=== PATIENT | male | born 1940 | race Caucasian/White ===

== ENCOUNTER → 2016-11-11 | Outpatient (CLI) | payer BC ==
[~2016-11-11] MED LIST: FESO4TAB PO; FLM4 PO; METR0.754 TOP; OPTIRAY 320 IV PRN; OXYC-57 PO
--- NOTE | 2016-11-12 08:02 | DIAGNOSTIC IMAGING REPORT ---
CT OF THE ABDOMEN AND PELVIS WITH AND WITHOUT CONTRAST HEMATURIA PROTOCOL CLINICAL HISTORY: Microscopic hematuria. COMPARISON STUDY: CT of the abdomen and pelvis September 12, 2014. TECHNIQUE: Unenhanced and split bolus phase imaging of the abdomen and pelvis was performed. Injection of 94 cc of Optiray 320 IV was uneventful. Delayed phase imaging through the bladder was also performed. CT DOSE: 810.16 mGy.cm FINDINGS: There is a 2 mm right renal calculus. No ureteral calculi are present. There is no hydronephrosis or hydroureter. No solid renal lesions are present. No bladder lesion is identified. The prostate is mildly enlarged. Best shown on coronal reformats, there is apparent wall irregularity of the left ureter, most evident at the level the mid ureter. This is possibly due to adjacent vessels. In addition, there is equivocal urothelial thickening within the left renal collecting system/renal pelvis. No intraluminal abnormalities identified. There is no upstream dilatation. The liver, spleen, adrenal glands and pancreas are normal. Mild mesenteric infiltration is unchanged. There is no abdominal or pelvic lymphadenopathy. There is an old L1 compression fracture. There are no suspicious osseous lesions. IMPRESSION: 1. 2 mm right renal calculus. No ureteral calculi or hydronephrosis. 2. Apparent wall irregularity of the left ureter and equivocal urothelial thickening within the left renal pelvis and collecting system. The findings are inconclusive but asymmetric when compared to the right side. Given the clinical history, urothelial lesions would be difficult to exclude. The findings could be correlated with urine cytology and ureteroscopy as indicated. Electronically signed by: Brian Rosas M.D. 11/12/2016 8:00 AM Dictated Date/Time: 11/11/2016 11:20 AM
== END | disposition home or self-care (01) ==
LOC: C.CTS 10:33
PROVIDERS: ATTEND Urology
DX: R31.29 Other microscopic hematuria (principal); N20.0 Calculus of kidney

== ENCOUNTER → 2016-11-20 | Outpatient (CLI) | payer BC ==
[~2016-11-20] MED LIST changes: -OPTIRAY 320 IV PRN
== END | disposition home or self-care (01) ==
LOC: C.LABSPEC 17:22
PROVIDERS: ATTEND Urology
DX: R31.9 Hematuria, unspecified (principal); R82.8 Abnormal findings on cytological and histological examination of urine

== ENCOUNTER 2016-12-16 08:41 | Day surgery (SDC) | payer BC ==
[2016-12-03 09:22] VITALS: BMI 24.0
--- NOTE | 2016-12-03 09:43 | PAT Medication Instructions ---
Service Date Dec 03, 2016. Current Home Medication List Fesoterodine Fumarate (Toviaz), 1 TAB PO HS Metronidazole (Topical) (Metrocream), 1 APPLN TOP BID Tamsulosin HCl (Tamsulosin HCl), 1 CAP PO HS Medication Instructions For Your Scheduled Surgery - Hold the following medications 24 hours prior to surgery: Metronidazole (Topical) (Metrocream), 1 APPLN TOP BID - Take the following medications as scheduled the evening before surgery: Fesoterodine Fumarate (Toviaz), 1 TAB PO HS Tamsulosin HCl (Tamsulosin HCl), 1 CAP PO HS Nothing to eat or drink after midnight If you have any questions please call us at [phone] or [phone] or [phone]
[2016-12-03 10:17] LABS: BASO % 0.6 %; BASO ABS # 0.03 K/uL (0-0.2); COMPLETE YES; EOS % 2.3 %; HEMATOCRIT 43.2 % (42-52); IG% 0.2 %; LYMPH % 21.7 %; LYMPH ABS # 1.02 K/uL (1.2-3.4); MEAN CELL VOLUME 97.5 fL (80-100); MEAN CORPUSCULAR HGB CONC 33.8 g/dl (32-36); MEAN PLATELET VOLUME 11.7 fL (7.4-10.4); MONO % 8.5 %; NEUT % 66.7 %; PLATELET COUNT 150 K/uL (130-400); RED BLOOD COUNT 4.43 M/uL (4.7-6.1); WHITE BLOOD COUNT 4.71 K/uL (4.8-10.8)
--- NOTE | 2016-12-03 10:19 | DIAGNOSTIC IMAGING REPORT ---
TWO VIEW CHEST CLINICAL HISTORY: Preoperative examination. FINDINGS: PA and lateral chest radiographs are correlated with chest CT dated 06/20/2015. The heart is mildly enlarged and there is atherosclerotic calcification of the thoracic aorta. The pulmonary vasculature is noncongested. Nonspecific interstitial thickening is identified. There is no airspace consolidation or pleural effusion. There is no pneumothorax. The skeletal structures are osteopenic. Mild scoliosis is noted in the thoracic spine. IMPRESSION: Mild cardiac enlargement with no active disease in the chest. Electronically signed by: Maurizio Hayes M.D. 12/03/2016 10:17 AM Dictated Date/Time: 12/03/2016 10:16 AM
[2016-12-03 10:30] LABS: MANUAL MICROSCOPIC REQUIRED? NO; REVIEW REQ? NO; URINE APPEARANCE CLEAR (CLEAR); URINE BILIRUBIN NEG (NEG); URINE COLOR YELLOW; URINE EPITHELIAL CELL AUTO 0-5 /lpf (0-5); URINE NITRITE NEG (NEG); URINE PH 5.5 (4.5-7.5); URINE SPECIFIC GRAVITY 1.017 (1.000-1.030); UROBILINOGEN NEG (NEG)
[2016-12-03 10:31] LABS: BUN/CREATININE RATIO 16.8 (10-20); CALCIUM 8.9 mg/dl (8.5-10.1); CREATININE 1.4 mg/dl (0.60-1.40)
[~2016-12-16] VITALS: Ht 172.7 cm; Wt 70.0 kg
[~2016-12-16 08:41] MED LIST changes: +CIPROFLOXACIN / D5W 400 MG IV SCH; +LACTATED RINGER'S 1000ML 1,000 ML IV SCH; -OXYC-57 PO
[2016-12-16 09:08] VITALS: BP 153/82; PULSE 81; TEMP 36.4; O2SAT 98; Ht 172.7 cm; Wt 70.0 kg
[2016-12-16] MEDS ORDERED: MIDAZOLAM HCL 1 MG/ML 2ML VIAL ONE (09:21)
[2016-12-16] MEDS ORDERED: FENTANYL CITRATE INJ 50 MCG/1 ML 2 ML VIAL ONE (09:21)
[2016-12-16] MEDS ORDERED: ONDANSETRON INJ 2 MG/ML 2 ML VIAL ONE (09:21)
[2016-12-16] MEDS ORDERED: PROPOFOL IV EMULSION 10 MG/ML 20 ML VIAL IV ONE (09:21)
[2016-12-16] MEDS ORDERED: LIDOCAINE HCL 2% 2 ML VIAL (20MG/ML) ONE (09:21)
--- NOTE | 2016-12-16 09:55 | History & Physical Bridge Note ---
H&P Re-Evaluation Bridge Note: I have examined the patient, reviewed the History & Physical and in the interval since the performance of the History & Physical I have noted the following changes of clinical significance: No changes noted
[2016-12-16] MEDS ORDERED: FENTANYL CITRATE INJ 50 MCG/1 ML 2 ML VIAL IV PRN (10:15)
[2016-12-16] MEDS ORDERED: EpHEDrine SULFATE INJ 50 MG/ML AMP IV PRN (10:15)
[2016-12-16] MEDS ORDERED: ATROPINE SULFATE 0.1 MG/ML 5ML SYR IV PRN (10:15)
[2016-12-16] MEDS ORDERED: EpHEDrine SULFATE 50MG/5ML SYR ONE (10:46)
[2016-12-16] MEDS ORDERED: [UNRECOGNIZED DRUG - OTHER] INSTIL ONE (11:21)
[2016-12-16] MEDS ORDERED: WATER INSTIL ONE (11:21)
--- NOTE | 2016-12-16 11:25 | [facility] Post Operative Brief Note ---
Immediate Operative Summary Operative Date Dec 16, 2016. Pre-Operative Diagnosis Abnormal Left Ureteral Mucosa and Hematuria Post-Operative Diagnosis Abnormal Left Ureteral Mucosa and Hematuria Procedure(s) Performed Cystoscopy, Left Ureteroscopy, Left Retrograde Pyelogram and Left Ureteral Stent Insertion Surgeon Dr. Jeanmarie Banks [place] Hand Surgeon(s) Dr. Fortunato Lisa Estimated Blood Loss 1ml Findings ureteral stricture Specimens Left Renal Barbatoge for Cytology collected at 1110 and sent to lab at 1115. Drains 6x26 left stent
[2016-12-16] MEDS ORDERED: OXYC-57 PO (11:26)
--- NOTE | 2016-12-16 11:27 | Discharge Instructions ---
Discharge Instructions Visit Reason for Visit: Hematuria Discharge Discharge Diagnosis / Problem: abnormal ureteral micosa Discharge Goals Goal(s): Therapeutic intervention Activity Recommendations Activity Limitations: resume your previous activity (take it easy today) Anesthesia . Post Anesthesia Instructions: If you have had General Anesthesia or IV Sedation: * Do not drive today. * Resume driving when surgeon permits. * Do not make important decisions or sign legal documents today. * Call surgeon for: 1. Temperature elevations greater than 101 degrees F. 2. Uncontrollable pain. 3. Excessive bleeding. 4. Persistent nausea and vomiting. 5. Medication intolerance (nausea, vomiting or rash). * For nausea and vomiting use only clear liquids such as: tea, soda, bouillon until nausea subsides, then gradually increase diet as tolerated. * If you have any concerns or questions, call your surgeon's office. If physician is unavailable and it is an emergency, call 911 or go to the nearest emergency room. . Diet Recommendations Recommended Home Diet: resume previous diet Procedures Procedures Performed: Cystoscopy, Left Ureteroscopy, Left Retrograde Pyelogram and Left Ureteral Stent Insertion Pending Studies Studies pending at discharge: no Medical Emergencies . Who to Call and When: Medical Emergencies: If at any time you feel your situation is an emergency, please call 911 immediately. . Non-Emergent Contact Non-Emergency issues call your: Urologist . . "Provider Documentation" section prepared by Jeanmarie Banks. [place] Drug Monitoring Program Search Results: patient reviewed within database
[2016-12-16] MEDS ORDERED: OXYCODONE/ACETAMINOPHEN 5-325 TAB PO PRN (11:30)
--- NOTE | 2016-12-16 12:03 | Anesthesiology Progress Note ---
Anesthesia Post Op Note Date & Time Dec 16, 2016 at 12:04 Vital Signs Vital Signs Past 12 Hours Date Time Temp Pulse Resp B/P Pulse Ox O2 Delivery O2 Flow Rate FiO2 12/16/16 11:55 77 15 122/72 96 Room Air 12/16/16 11:45 85 13 119/81 100 Mask 10 12/16/16 11:35 75 10 115/68 99 Mask 10 12/16/16 11:26 36.0 80 14 111/73 100 Mask 10 12/16/16 09:08 36.4 81 18 153/82 98 Room Air Notes Mental Status: alert / awake / arousable, participated in evaluation Pt Amnestic to Procedure: Yes Nausea / Vomiting: adequately controlled Pain: adequately controlled Airway Patency, RR, SpO2: stable & adequate BP & HR: stable & adequate Hydration State: stable & adequate Anesthetic Complications: no major complications apparent
--- NOTE | 2016-12-16 12:05 | DIAGNOSTIC IMAGING REPORT ---
Retrograde PolyGram RETROGRADE INCLUDES KUB CLINICAL HISTORY: LEFT STENT stent placement TECHNIQUE: Image intensifier COMPARISON STUDY: 11/12/2016 FINDINGS: Partial retrograde opacification left ureter and left renal collecting system. This is followed by wire placement and is followed by stent placement. Proximal aspect of the stent appears be in good position. Distal aspect of the stent is not seen in this examination. IMPRESSION: Left ureteral stent placement Electronically signed by: Jeremy Blankenship M.D. 12/16/2016 12:04 PM Dictated Date/Time: 12/16/2016 12:03 PM
[2016-12-16 12:20] VITALS: BP 127/74; PULSE 75; TEMP 36.2; O2SAT 97
--- NOTE | 2016-12-16 12:23 | OPERATIVE REPORT ---
DATE OF OPERATION: 12/16/2016 PREOPERATIVE DIAGNOSIS: Abnormal ureteral mucosa on CAT scan with hematuria. POSTOPERATIVE DIAGNOSIS: Same plus ureteral stricture x2. FINDINGS: Cystoscopic exam revealed normal anterior urethra. Prostatic fossa was mildly obstructing with kissing lateral lobes. Bladder showed 1+ trabeculation. Left retrograde showed a distal ureteral stricture and a proximal ureteral stricture. SURGEONS: Dr. Banks and Dr. Lisa. ANESTHESIA: General. DRAINS: 6 Anguillan x 26 cm left ureteral stent. COMPLICATIONS: Unable to get the ureteroscope past the proximal stricture. SPECIMENS: Barbotage urine from left renal pelvis. INDICATIONS: The patient is a 76-year-old white male who on evaluation for hematuria was found to have an abnormal appearing mucosa by CAT scan in the left renal pelvis and also some abnormal thickening of the ureter in several areas. Because of this and the hematuria, the patient was brought in for ureteroscopy. PROCEDURE IN DETAIL: After the induction of an adequate general anesthetic and appropriate time-out, the patient was placed in the dorsal lithotomy position, lower abdomen and genitalia were prepped with Hibiclens and draped in a sterile fashion. Using a 22-Anguillan cystoscope, routine cystoscopic exam was performed with the above noted findings with the 30 and 70 degree lenses. Next, using a 4.8 Anguillan cone tipped catheter, left retrograde pyelogram was performed with the above noted findings. After completing this, a 0.03 guidewire was passed up the left ureter under fluoroscopic guidance until positioned in the renal pelvis. The intramural tunnel was then dilated with a 10-Anguillan dilator. Initially tried flexible ureteroscopy but was unable to get the flexible ureteroscope to go by the distal stricture, so we switched to a rigid ureteroscope and were able to get the ureteroscope up the ureter to over the level of the vessels and up to the proximal stricture. There were no tumors seen this far up. The rigid ureteroscope was removed and another attempt was made to pass the flexible ureteroscope past the distal stricture, but we were unable to get the scope to go by. So at this point, the ureteroscope was removed. A 5-Anguillan open-ended catheter was passed over the wire, which was then removed. Barbotage specimen from the left renal pelvis was obtained. The guidewire was then rethreaded through the open-ended catheter which was removed and then this was rethreaded through the cystoscope and a 6 Anguillan x 26 cm stent was passed under fluoroscopic guidance over the wire up into the left renal pelvis, confirmed by fluoroscopy. The guidewire was removed. There was good curl at the bladder level. The patient's bladder was then drained, cystoscope and sheath were removed. All needle, sponge and instrument counts were correct at the end of the case. The patient tolerated the procedure well and went to the recovery room in stable condition. I attest to the content of the Intraoperative Record and any orders documented therein. Any exceptio ns are noted below.
[2016-12-16 12:45] VITALS: BP 123/72; PULSE 62; TEMP 36.4; O2SAT 99
[2016-12-16 13:15] VITALS: BP 126/72; PULSE 69; O2SAT 99
== END 2016-12-16 13:50 | disposition home or self-care (01) ==
LOC: C.ACU 08:41
PROVIDERS: ATTEND Urology
DX: N36.8 Other specified disorders of urethra (principal); R31.9 Hematuria, unspecified; N35.9 Urethral stricture, unspecified; Z68.24 Body mass index [BMI] 24.0-24.9, adult; Z98.41 Cataract extraction status, right eye; Z98.42 Cataract extraction status, left eye; Z82.49 Family history of ischemic heart disease and other diseases of the circulatory system; Z83.3 Family history of diabetes mellitus

== ENCOUNTER → 2017-02-24 | Outpatient (CLI) | payer BC ==
[~2017-02-24] MED LIST changes: -CIPROFLOXACIN / D5W 400 MG IV SCH; -LACTATED RINGER'S 1000ML 1,000 ML IV SCH; +OXYC-57 PO
[2017-02-24 13:57] LABS: ESTIMATED AVERAGE GLUCOSE 100 mg/dl; HA1C FLAG Normal (Normal)
[2017-02-24 14:48] LABS: BLOOD UREA NITROGEN 22 mg/dl (7-18); BUN/CREATININE RATIO 15.5 (10-20); CALCIUM 8.7 mg/dl (8.5-10.1); CARBON DIOXIDE 26 mmol/L (21-32); CHLORIDE 109 mmol/L (98-107); GLUCOSE 99 mg/dl (70-99); SODIUM 144 mmol/L (136-145)
[2017-02-24 14:51] LABS: CHOLESTEROL 175 mg/dl (0-200); CHOLESTEROL/HDL RATIO 3.7; HDL CHOLESTEROL 47 mg/dl; LDL CHOLESTEROL CALCULATED 120 mg/dl; TRIGLYCERIDES 42 mg/dl (0-150); VERY LOW DENSITY LIPOPROT CALC 8 mg/dl
== END | disposition home or self-care (01) ==
LOC: C.LABBC 09:29
PROVIDERS: ATTEND Internal Medicine
DX: Z00.00 Encounter for general adult medical examination without abnormal findings (principal); R73.01 Impaired fasting glucose

== ENCOUNTER → 2017-06-02 | Outpatient (CLI) | payer BC ==
[2017-06-02 13:43] LABS: BASO % 0.7 %; BASO ABS # 0.04 K/uL (0-0.2); COMPLETE YES; EOS % 1.7 %; HEMATOCRIT 34.7 % (42-52); IG% 0.2 %; LYMPH % 22.4 %; LYMPH ABS # 1.21 K/uL (1.2-3.4); MEAN CELL VOLUME 89.2 fL (80-100); MEAN CORPUSCULAR HEMOGLOBIN 28.5 pg (25-34); MEAN PLATELET VOLUME 11.3 fL (7.4-10.4); MONO % 11.9 %; NEUT % 63.1 %; PLATELET COUNT 231 K/uL (130-400); RED BLOOD COUNT 3.89 M/uL (4.7-6.1)
[2017-06-02 15:21] LABS: BLOOD UREA NITROGEN 22 mg/dl (7-18); BUN/CREATININE RATIO 15.4 (10-20); CALCIUM 8.9 mg/dl (8.5-10.1); CARBON DIOXIDE 29 mmol/L (21-32); CHLORIDE 104 mmol/L (98-107); GLUCOSE 105 mg/dl (70-99); SODIUM 138 mmol/L (136-145)
== END | disposition home or self-care (01) ==
LOC: C.LABBC 11:31
PROVIDERS: ATTEND Urology
DX: N40.1 Benign prostatic hyperplasia with lower urinary tract symptoms (principal); R31.29 Other microscopic hematuria; R31.0 Gross hematuria

== ENCOUNTER → 2017-07-06 | Outpatient (CLI) | payer BC ==
[~2017-07-06] MED LIST changes: -OXYC-57 PO
[2017-07-06 13:46] LABS: HEMATOCRIT 36.7 % (42-52); MEAN CORPUSCULAR HEMOGLOBIN 27.6 pg (25-34); MEAN CORPUSCULAR HGB CONC 31.3 g/dl (32-36); MEAN PLATELET VOLUME 11.6 fL (7.4-10.4); PLATELET COUNT 218 K/uL (130-400); RED BLOOD COUNT 4.17 M/uL (4.7-6.1); WHITE BLOOD COUNT 6.14 K/uL (4.8-10.8)
== END | disposition home or self-care (01) ==
LOC: C.LABBC 10:41
PROVIDERS: ATTEND Internal Medicine
DX: D64.9 Anemia, unspecified (principal)

== ENCOUNTER → 2017-09-03 | Outpatient (CLI) | payer BC ==
[2017-09-03 13:58] LABS: HEMATOCRIT 42.9 % (42-52); MEAN CELL VOLUME 94.5 fL (80-100); MEAN CORPUSCULAR HEMOGLOBIN 31.1 pg (25-34); MEAN CORPUSCULAR HGB CONC 32.9 g/dl (32-36); PLATELET COUNT 184 K/uL (130-400); RED BLOOD COUNT 4.54 M/uL (4.7-6.1); WHITE BLOOD COUNT 6.65 K/uL (4.8-10.8)
[2017-09-03 14:14] LABS: ALT/SGPT 15 U/L (12-78); AST/SGOT 12 U/L (15-37); BLOOD UREA NITROGEN 17 mg/dl (7-18); BUN/CREATININE RATIO 11.9 (10-20); CALCIUM 9.2 mg/dl (8.5-10.1); CARBON DIOXIDE 29 mmol/L (21-32); CHLORIDE 107 mmol/L (98-107); CHOLESTEROL 186 mg/dl (0-200); CREATININE 1.41 mg/dl (0.60-1.40); GLUCOSE 97 mg/dl (70-99); POTASSIUM 3.6 mmol/L (3.5-5.1); SODIUM 141 mmol/L (136-145); TRIGLYCERIDES 66 mg/dl (0-150); VERY LOW DENSITY LIPOPROT CALC 13 mg/dl
[2017-09-03 14:19] LABS: CHOLESTEROL/HDL RATIO 3.9; FERRITIN 23.9 ng/ml (8.0-388.0); HDL CHOLESTEROL 48 mg/dl; LDL CHOLESTEROL CALCULATED 125 mg/dl
[2017-09-04 05:39] LABS: ESTIMATED AVERAGE GLUCOSE 100 mg/dl; HA1C FLAG Normal (Normal)
== END | disposition home or self-care (01) ==
LOC: C.LABBC 09:44
PROVIDERS: ATTEND Internal Medicine
DX: R73.01 Impaired fasting glucose (principal); D64.9 Anemia, unspecified; E78.5 Hyperlipidemia, unspecified

== ENCOUNTER → 2017-10-29 | Outpatient (CLI) | payer BC ==
[~2017-10-29] MED LIST changes: +DOCU1TAB6 PO; +DTR2 PO; +FRRS300 PEG; +MAGN1SOL7 PO; +POLY335025 PO; +[UNRECOGNIZED DRUG - CODE] OPB
[2017-10-29 19:12] LABS: BLOOD UREA NITROGEN 26 mg/dl (7-18); CREATININE 1.48 mg/dl (0.60-1.40)
== END | disposition home or self-care (01) ==
LOC: C.LABBC 14:02
PROVIDERS: ATTEND Urology
DX: R31.0 Gross hematuria (principal)

== ENCOUNTER → 2017-10-30 | Outpatient (CLI) | payer BC ==
[~2017-10-30] MED LIST changes: -DOCU1TAB6 PO; -DTR2 PO; -FRRS300 PEG; -MAGN1SOL7 PO; +OPTIRAY 320 IV PRN; -POLY335025 PO; -[UNRECOGNIZED DRUG - CODE] OPB
--- NOTE | 2017-10-30 12:40 | DIAGNOSTIC IMAGING REPORT ---
ABD/PELVIS COMBO CT DOSE: 1323.36 mGycm HISTORY: Hematuria GROSS HEMATURIA TECHNIQUE: Multiaxial CT images of the abdomen and pelvis were performed pre and post intravenous contrast enhancement. A dose lowering technique was utilized adhering to the principles of ALARA. COMPARISON STUDY: 11/11/2016 FINDINGS: Lung bases are clear. Liver spleen and pancreas appear unremarkable. Right kidney enhances uniformly. There is unchanging 2 mm nonobstructing calcification of the mid right kidney. No new or interval findings of the right kidney compared to the prior study. Left kidney shows subtle in homogeneity of enhancement as compared to the right kidney. There is persistent infiltrative change of the left renal perinephric space unchanged from the prior study. Suggestion of slightly progressive soft tissue near the proximal left ureter and left renal pelvis compared to the prior exam. Subtle increase in extrinsic mass effect upon the left renal pelvis and proximal left ureter. 7 mm decrease in density mid left kidney medially anterior to the renal pelvis not present on the prior study. Persistent caliectasis of the upper pole perhaps slightly increased in prominence compared to the prior study. Persistent slight soft tissue fullness encompassing the proximal left ureter although significant narrowing of the ureteral lumen is not appreciated. Ureters otherwise are unremarkable in overall course and caliber. Previously noted soft tissue prominence about the left ureter at its mid aspect is similar. This again is suggestive of vascular/vessel artifact immediately adjacent to the ureter as opposed to a true uroepithelial lesion. The bladder is unremarkable in appearance. Opacification is unremarkable. Bowel pattern within the abdomen and pelvis is considered nonobstructive throughout. Several small para-aortic nodes less than 6 mm in dimension are stable. IMPRESSION: 1. 2 mm nonobstructing calculus centrally right kidney unchanged in the prior study. 2. Subtle in homogeneity of enhancement of the mid to lower aspect of left kidney compared to the prior study. 3. Slight increase in abnormal soft tissue within the left renal pelvis as well as surrounding the left ureter. 4. Slight increase in distention and caliectasis of the upper pole calyces of the left kidney as well as incomplete filling of the left renal pelvis as compared to the prior study again possibly secondary to progressive soft tissue prominence at the left renal hilum. 5. Based on this appearance I cannot exclude the possibility of a slowly progressive lesion of the left renal pelvis with secondary mass effect creating mild distention of the upper pole collecting system left kidney and possibly vascular compromise and/or infiltrative changes of the parenchyma of the mid to lower pole left kidney. 6. A neoplastic process must be considered. 7. Major of the study is similar compared to the prior exam with no significant interval change. The above report was generated using voice recognition software. It may contain grammatical, syntax or spelling errors. Electronically signed by: Jeremy Blankenship M.D. 10/30/2017 12:39 PM Dictated Date/Time: 10/30/2017 12:28 PM
== END | disposition home or self-care (01) ==
LOC: C.CTS 11:51
PROVIDERS: ATTEND Urology
DX: R31.0 Gross hematuria (principal)

== ENCOUNTER → 2017-12-12 | Outpatient (CLI) | payer BC ==
[~2017-12-12] MED LIST changes: +DOCU1TAB6 PO; +DTR2 PO; +FRRS300 PEG; +MAGN1SOL7 PO; -OPTIRAY 320 IV PRN; +POLY335025 PO; +[UNRECOGNIZED DRUG - CODE] OPB
== END | disposition home or self-care (01) ==
LOC: C.LAB1850 12:02
PROVIDERS: ATTEND Family Medicine
DX: R39.9 Unspecified symptoms and signs involving the genitourinary system (principal)

== ENCOUNTER 2017-12-13 08:40 | Emergency (ER) | payer BC ==
[~2017-12-13] VITALS: Ht 172.7 cm; Wt 69.0 kg
[~2017-12-13 08:40] MED LIST changes: -DOCU1TAB6 PO; -DTR2 PO; -FRRS300 PEG; -MAGN1SOL7 PO; -POLY335025 PO; -[UNRECOGNIZED DRUG - CODE] OPB
[2017-12-13 08:44] VITALS: TEMP 36.5; Ht 172.7 cm; Wt 69.0 kg
--- NOTE | 2017-12-13 09:33 | EMERGENCY ROOM VISIT NOTE ---
ED Visit Note First contact with patient: 08:53 I have seen and examined this patient with Jer Wheeler and generally agree with the treatment plan as discussed. Current/Historical Medications Scheduled Fesoterodine Fumarate (Toviaz), 1 TAB PO HS Metronidazole (Topical) (Metrocream), 1 APPLN TOP BID Tamsulosin HCl (Tamsulosin HCl), 1 CAP PO HS Allergies Coded Allergies: No Known Allergies (Unverified , 12/16/16) Vital Signs Date Time Temp Pulse Resp B/P (MAP) Pulse Ox O2 Delivery O2 Flow Rate FiO2 12/13/17 08:44 36.5 107 18 125/72 99 Room Air Departure Information Referrals Pro,Navdeep Cruz M.D. (PCP) Patient Instructions My [facility]
--- NOTE | 2017-12-13 09:39 | DIAGNOSTIC IMAGING REPORT ---
PA CHEST RADIOGRAPH AND UPRIGHT AND SUPINE AP RADIOGRAPHS OF THE ABDOMEN CLINICAL HISTORY: constipation COMPARISON STUDY: Chest CT June 20, [address] of the abdomen and pelvis October 30, 2017. FINDINGS: Lung volumes are normal. No pneumothorax or pleural effusion is noted. There is no evidence for pulmonary edema. Cardiomediastinal silhouette is normal. There is no free air. There are prominent loops gas-filled small bowel large bowel without convincing evidence for a bowel obstruction. Pelvic calcifications reflect phleboliths. There is no significant stool within the rectum. There is mild to moderate amount of stool within the colon. IMPRESSION: 1. No free air. 2. Prominent loops of gas-filled small large bowel without evidence for a bowel obstruction. 3. Mild to moderate amount stool within the colon. No significant stool within the rectum. Electronically signed by: Brian Rosas M.D. 12/13/2017 9:37 AM Dictated Date/Time: 12/13/2017 9:33 AM
[2017-12-13] MEDS ORDERED: MAGN1SOL7 PO (09:44)
[2017-12-13] MEDS ORDERED: [UNRECOGNIZED DRUG - CODE] OPB (09:44)
[2017-12-13] MEDS ORDERED: DTR2 PO (09:44)
[2017-12-13] MEDS ORDERED: DOCU1TAB6 PO (09:44)
[2017-12-13] MEDS ORDERED: FRRS300 PEG (09:44)
[2017-12-13] MEDS ORDERED: POLY335025 PO (09:44)
[2017-12-13 10:41] VITALS: BP 136/76; PULSE 89; O2SAT 99
--- NOTE | 2017-12-13 16:48 | EMERGENCY ROOM VISIT NOTE ---
History First contact with patient: 08:53 Chief Complaint: OTHER COMPLAINT Stated Complaint: CONSTIPATION BLOCKAGE? History of Present Illness The patient is a 77 year old white male who presents to the Emergency Room with complaints of possible constipation. He denies any abdominal pain. Patient had a left nephrectomy 2 weeks ago at [place]. He states he was on a liquid diet for 5 days after surgery. He has since increased his diet back to normal. He states he has had nothing but watery stools. He is moving his bowels daily but states he has not had any significant solid stool. He became concerned about a blockage. He was seen at urgent care yesterday and they instructed him to take magnesium citrate which he did. He states there was an increase in the liquid stool, but no solid stool. He has been taking MiraLAX twice a day as well as stool softeners. He denies any abdominal distention. No pain. No fevers or chills. He did have some urinary symptoms and was diagnosed with a UTI yesterday. He has not notified his fight manager. His accompanies him today. Review of Systems REVIEW OF SYSTEM: HEENT: No dizziness, visual problems, hearing loss, or tinnitus. There is no difficulty swallowing and no oral lesions are present. PULMONARY: No cough, shortness of breath, sputum production or hemoptysis. CARDIOVASCULAR: No chest pain, palpitations, shortness of breath or peripheral edema. GASTROINTESTINAL: No diarrhea, constipation, nausea, vomiting, or abdominal pain. GENITOURINARY: No urgency or nocturia. Positive dysuria and frequency. NEUROLOGIC: No weakness, muscle tenderness, epilepsy or history of neurological problems. MUSCULOSKELETAL: No history of joint tenderness/swelling. Positive history of arthritis and arthralgias. SKIN: No rashes or lesions. PSYCHIATRIC: No history of depression or mental illness. ENDOCRINE: No history of diabetes, thyroid disorders, or abnormal hair growth. Past Medical/Surgical History Previous surgeries: Left nephrectomy. Medical history: Significant for BPH Family History Noncontributory. Parents are . Social History Smoking Status: Never Smoker Smokeless Tobacco Use: No Drug Use: none Marital Status: Housing Status: lives with family Occupation Status: retired Current/Historical Medications Scheduled Docusate Sodium (Docusate Sodium), 1 TAB PO BID Ferrous Sulfate (Ferrous Sulfate), 1 TAB PEG DAILY Magnesium Citrate (Magnesium Citrate), 10 OZ PO Saturdays Metronidazole (Topical) (Metrocream), 1 APPLN TOP BID Polyethylene Glycol 3350 (Miralax), 17 GM PO DAILY Tamsulosin HCl (Tamsulosin HCl), 1 CAP PO HS Tetrahydrozoline Hcl (Ophth) (Eq Eye Drops), 1 DROP OPB DAILY Tolterodine Tartrate (Detrol), 1 TAB PO BID Physical Exam Vital Signs Date Time Temp Pulse Resp B/P (MAP) Pulse Ox O2 Delivery O2 Flow Rate FiO2 12/13/17 10:41 89 16 136/76 99 12/13/17 08:44 36.5 107 18 125/72 99 Room Air Physical Exam Gen.: Well-developed, well-nourished, elderly white male, in no acute distress. Sitting on a bed. Alert and oriented. Skin:Warm and dry with good turgor. No rashes or lesions. No ecchymosis or erythema. The patient is not diaphoretic. No abrasions. Multiple healing surgical incisions on his abdomen. Steri-Strips are in place. No signs of infection. HEENT: Normocephalic atraumatic. Eyes PERRLA, EOMI. No conjunctiva or scleral injection. Nares patent bilaterally without turbinate enlargement. No significant drainage. No epistaxis. Oropharynx without erythema or exudate. Uvula midline, oral mucosa moist. No lesions present. Heart: Heart RRR. No MGR. Peripheral pulses are 2+. Lungs: Lungs are clear to auscultation. No crackles rhonchi or wheezing. Good air movement. The patient is able to take a deep breath. Abdomen: Abdomen was inspected, auscultated, and palpated. Bowel sounds present x 4. Soft, nontender to palpation. No hepato-splenomegaly. No masses noted. No rebound. Musculoskeletal: Gross motor function of the upper and lower extremities is intact and unremarkable. Medical Decision & Procedures ER Provider Diagnostic Interpretation: Acute abdominal x-ray series obtained today was read by radiology. No evidence for obstruction. Prominent Air-filled loops of bowel. No free air. Mild to moderate amount of stool within the colon. Films were reviewed by me and Dr. Yen. ED Course Patient was educated regarding today's findings. Conservative care measures were discussed. I did request a urine sample. He was unable to provide one. Provide an outpatient sample for formal UA. Culture has are been ordered from yesterday's sample at the office. Acute abdominal x-ray was obtained today. He has no evidence for obstruction. Patient was instructed to use 48 hours of a liquid diet and then gradually advance back to a normal diet. He should stop all of the motility agents and softeners. Follow up with his PCP this week for reexamination. He should notify his fight manager of the UTI diagnosis. Continue on his antibiotic. Patient was seen in conjunction with Dr. Yen, who also evaluated the patient and concurred with today's diagnosis and treatment plan. Medical Decision Possibility of obstruction, diverticulitis, diverticulosis, lack of stool, parasite, and antibiotic induced diarrhea were considered. [place] Drug Monitoring Program Search Results: no issues identified Medication Reconcilliation Current Medication List: was personally reviewed by me Blood Pressure Screening Patient's blood pressure: Normal blood pressure Impression Primary Impression: UTI (urinary tract infection) Additional Impression: Constipation Departure Information Dispostion Home / Self-Care Condition GOOD Forms WORK / SCHOOL INSTRUCTIONS, HOME CARE DOCUMENTATION FORM, IMPORTANT VISIT INFORMATION Patient Instructions Constipation, My [facility] Additional Instructions Continue your Cipro Call your fight manager at [place] to make him aware of your UTI Continue a liquid diet 48 hours and then slowly advance to a normal diet Avoid stool softeners or motility agents for the next 48 hours and then add as needed Follow-up with your PCP or return to the ED for any acute changes or worsening of symptoms Problem Qualifiers Primary Impression: UTI (urinary tract infection) Urinary tract infection type: acute cystitis Hematuria presence: without hematuria Qualified Codes: N30.00 - Acute cystitis without hematuria Additional Impression: Constipation Constipation type: unspecified constipation type Qualified Codes: K59.00 - Constipation, unspecified
== END 2017-12-13 10:43 | disposition home or self-care (01) ==
LOC: C.EDB 08:43
DX: N30.00 Acute cystitis without hematuria (principal); K59.00 Constipation, unspecified; Z90.5 Acquired absence of kidney; N40.0 Benign prostatic hyperplasia without lower urinary tract symptoms

== ENCOUNTER → 2017-12-13 | Outpatient (CLI) | payer BC | END | disposition home or self-care (01) | LOC: C.LABSPEC 14:23 | PROVIDERS: ATTEND Physician Assistant | DX: R35.0 Frequency of micturition (principal); R30.0 Dysuria ==

== ENCOUNTER → 2017-12-16 | Outpatient (CLI) | payer BC ==
[~2017-12-16] MED LIST changes: +DOCU1TAB6 PO; +DTR2 PO; -FESO4TAB PO; +FRRS300 PEG; +MAGN1SOL7 PO; +POLY335025 PO; +[UNRECOGNIZED DRUG - CODE] OPB
[2017-12-16 15:37] LABS: BASO % 0.7 %; BASO ABS # 0.04 K/uL (0-0.2); EOS % 2.1 %; EOS ABS # 0.12 K/uL (0-0.5); HEMATOCRIT 39.4 % (42-52); HEMOGLOBIN 13.3 g/dL (14.0-18.0); IG# 0.01 K/uL (0.00-0.02); LYMPH % 21.9 %; LYMPH ABS # 1.28 K/uL (1.2-3.4); MEAN CELL VOLUME 97.8 fL (80-100); MEAN CORPUSCULAR HGB CONC 33.8 g/dl (32-36); MEAN PLATELET VOLUME 10.6 fL (7.4-10.4); MONO % 12.5 %; MONO ABS # 0.73 K/uL (0.11-0.59); NEUT % 62.6 %; NEUT ABS # 3.67 K/uL (1.4-6.5); PLATELET COUNT 278 K/uL (130-400); RED CELL DISTRIBUTION WIDTH CV 13.5 % (11.5-14.5); RED CELL DISTRIBUTION WIDTH SD 48.6 fL (36.4-46.3); WHITE BLOOD COUNT 5.85 K/uL (4.8-10.8)
[2017-12-16 15:50] LABS: BLOOD UREA NITROGEN 31 mg/dl (7-18); CALCIUM 8.8 mg/dl (8.5-10.1); CARBON DIOXIDE 27 mmol/L (21-32); CREATININE 2.15 mg/dl (0.60-1.40); GLUCOSE 111 mg/dl (70-99); POTASSIUM 4.4 mmol/L (3.5-5.1); SODIUM 137 mmol/L (136-145)
== END | disposition home or self-care (01) ==
LOC: C.LAB1850 14:30
PROVIDERS: ATTEND Nurse Practitioner Adult Health
DX: N39.0 Urinary tract infection, site not specified (principal); K59.00 Constipation, unspecified; R31.9 Hematuria, unspecified

== ENCOUNTER → 2017-12-24 | Outpatient (CLI) | payer BC ==
[2017-12-24 13:45] LABS: BLOOD UREA NITROGEN 25 mg/dl (7-18); CALCIUM 9.2 mg/dl (8.5-10.1); CARBON DIOXIDE 25 mmol/L (21-32); GLUCOSE 136 mg/dl (70-99); POTASSIUM 4.1 mmol/L (3.5-5.1); SODIUM 136 mmol/L (136-145)
== END | disposition home or self-care (01) ==
LOC: C.LABBC 10:20
PROVIDERS: ATTEND Internal Medicine
DX: N17.9 Acute kidney failure, unspecified (principal)

== ENCOUNTER → 2017-12-25 | Outpatient (CLI) | payer BC ==
--- NOTE | 2017-12-25 13:24 | DIAGNOSTIC IMAGING REPORT ---
ABDOMEN FOR HERNIA CLINICAL HISTORY: Z90.5 S/p [id number] Severe left groin painTomorrow if po TECHNIQUE: Ultrasound COMPARISON STUDY: None FINDINGS: Reducible fat-containing left inguinal hernia. No evidence for bowel containment or incarceration. IMPRESSION: Reducible fat-containing left inguinal hernia. The above report was generated using voice recognition software. It may contain grammatical, syntax or spelling errors. Electronically signed by: Jeremy Blankenship M.D. 12/25/2017 1:23 PM Dictated Date/Time: 12/25/2017 1:22 PM
== END | disposition home or self-care (01) ==
LOC: C.ULTRBC 12:40
PROVIDERS: ATTEND Nurse Practitioner Adult Health
DX: R10.30 Lower abdominal pain, unspecified (principal); Z90.5 Acquired absence of kidney

== ENCOUNTER → 2017-12-31 | Outpatient (CLI) | payer BC ==
[2017-12-31 13:36] LABS: BLOOD UREA NITROGEN 32 mg/dl (7-18); CALCIUM 9.1 mg/dl (8.5-10.1); CARBON DIOXIDE 29 mmol/L (21-32); CREATININE 2.03 mg/dl (0.60-1.40); GLUCOSE 66 mg/dl (70-99); POTASSIUM 4.3 mmol/L (3.5-5.1); SODIUM 135 mmol/L (136-145)
== END | disposition home or self-care (01) ==
LOC: C.LABBC 10:33
PROVIDERS: ATTEND Internal Medicine
DX: R39.9 Unspecified symptoms and signs involving the genitourinary system (principal); C68.9 Malignant neoplasm of urinary organ, unspecified

== ENCOUNTER → 2018-01-20 | Outpatient (CLI) | payer BC ==
--- NOTE | 2018-01-20 10:38 | DIAGNOSTIC IMAGING REPORT ---
(RENAL)RETROPERITON COMP CLINICAL HISTORY: 77 years-old Male presenting with N20.0 VdehpyjhtdnvngwO69.9 EkqzfjadyE29.9 EggseiM42.3 Chronic ki. TECHNIQUE: Real-time grayscale and limited color Doppler ultrasound imaging of the kidneys and bladder was performed. COMPARISON: CT from 10/30/2017. FINDINGS: Right kidney: Normal echogenicity of renal parenchyma. Right kidney measures 11 cm. No hydronephrosis. No convincing evidence of calculus or mass. Left kidney: Surgically absent. Bladder: Debris noted in the bladder. Possible circumferential wall thickening. Right ureteral jet present. Other: Enlarged prostate. IMPRESSION: 1. Post surgical changes of left nephrectomy. No right hydronephrosis. 2. Bladder debris could suggest hemorrhage or infection. Correlate with urinalysis. 3. Prostatomegaly. Electronically signed by: Emile Perez M.D. 01/20/2018 10:36 AM Dictated Date/Time: 01/20/2018 10:31 AM
== END | disposition home or self-care (01) ==
LOC: C.ULTR 09:53
PROVIDERS: ATTEND Internal Medicine Nephrology
DX: D64.9 Anemia, unspecified (principal); N18.3 Chronic kidney disease, stage 3 (moderate); N20.0 Calculus of kidney; R73.01 Impaired fasting glucose; R31.0 Gross hematuria; E78.5 Hyperlipidemia, unspecified

== ENCOUNTER → 2018-01-26 | Outpatient (CLI) | payer BC ==
[2018-01-26 13:15] LABS: HEMATOCRIT 42.6 % (42-52); HEMOGLOBIN 14.2 g/dL (14.0-18.0); MEAN CELL VOLUME 99.3 fL (80-100); MEAN CORPUSCULAR HEMOGLOBIN 33.1 pg (25-34); MEAN CORPUSCULAR HGB CONC 33.3 g/dl (32-36); MEAN PLATELET VOLUME 11.6 fL (7.4-10.4); PLATELET COUNT 161 K/uL (130-400); RED CELL DISTRIBUTION WIDTH CV 14.5 % (11.5-14.5); RED CELL DISTRIBUTION WIDTH SD 52.3 fL (36.4-46.3); WHITE BLOOD COUNT 5.58 K/uL (4.8-10.8)
[2018-01-26 13:47] LABS: AST/SGOT 11 U/L (15-37); BLOOD UREA NITROGEN 28 mg/dl (7-18); CALCIUM 8.9 mg/dl (8.5-10.1); CARBON DIOXIDE 26 mmol/L (21-32); GLUCOSE 104 mg/dl (70-99); POTASSIUM 4.2 mmol/L (3.5-5.1); SODIUM 139 mmol/L (136-145)
[2018-01-26 13:51] LABS: ALT/SGPT 18 U/L (12-78); CHOLESTEROL 170 mg/dl (0-200); LDL CHOLESTEROL CALCULATED 113 mg/dl
[2018-01-27 06:27] LABS: HEMOGLOBIN A1C 5.6 % (4.5-5.6)
== END | disposition home or self-care (01) ==
LOC: C.LABBC 09:39
PROVIDERS: ATTEND Internal Medicine
DX: N18.3 Chronic kidney disease, stage 3 (moderate) (principal); E78.5 Hyperlipidemia, unspecified; R31.0 Gross hematuria; D64.9 Anemia, unspecified; R73.01 Impaired fasting glucose

== ENCOUNTER → 2018-02-11 | Outpatient (CLI) | payer BC ==
[2018-02-11 17:23] LABS: HEMATOCRIT 42.7 % (42-52); HEMOGLOBIN 14.3 g/dL (14.0-18.0); MEAN CELL VOLUME 99.5 fL (80-100); MEAN CORPUSCULAR HEMOGLOBIN 33.3 pg (25-34); MEAN CORPUSCULAR HGB CONC 33.5 g/dl (32-36); MEAN PLATELET VOLUME 11.6 fL (7.4-10.4); PLATELET COUNT 206 K/uL (130-400); RED CELL DISTRIBUTION WIDTH CV 13.9 % (11.5-14.5); RED CELL DISTRIBUTION WIDTH SD 50.4 fL (36.4-46.3); WHITE BLOOD COUNT 8.51 K/uL (4.8-10.8)
[2018-02-11 17:41] LABS: ALBUMIN 3.7 gm/dl (3.4-5.0); ALT/SGPT 19 U/L (12-78); AST/SGOT 12 U/L (15-37); BLOOD UREA NITROGEN 29 mg/dl (7-18); CALCIUM 8.6 mg/dl (8.5-10.1); CARBON DIOXIDE 28 mmol/L (21-32); CREATININE 2.05 mg/dl (0.60-1.40); GLUCOSE 100 mg/dl (70-99); POTASSIUM 4.1 mmol/L (3.5-5.1); SODIUM 136 mmol/L (136-145); TOTAL PROTEIN 7.7 gm/dl (6.4-8.2)
[2018-02-11 17:42] LABS: ALKALINE PHOSPHATASE 84 U/L (45-117)
== END | disposition home or self-care (01) ==
LOC: C.LABBC 14:54
PROVIDERS: ATTEND Internal Medicine Nephrology
DX: N20.0 Calculus of kidney (principal); R31.9 Hematuria, unspecified; D64.9 Anemia, unspecified; N18.3 Chronic kidney disease, stage 3 (moderate)

== ENCOUNTER → 2018-06-18 | Outpatient (CLI) | payer BC ==
[2018-06-18 10:52] LABS: BASO % 0.8 %; BASO ABS # 0.04 K/uL (0-0.2); EOS % 4.3 %; EOS ABS # 0.21 K/uL (0-0.5); HEMATOCRIT 44.1 % (42-52); HEMOGLOBIN 14.2 g/dL (14.0-18.0); LYMPH % 26.7 %; LYMPH ABS # 1.31 K/uL (1.2-3.4); MEAN CELL VOLUME 98.9 fL (80-100); MEAN CORPUSCULAR HEMOGLOBIN 31.8 pg (25-34); MEAN CORPUSCULAR HGB CONC 32.2 g/dl (32-36); MEAN PLATELET VOLUME 11.1 fL (7.4-10.4); MONO ABS # 0.64 K/uL (0.11-0.59); NEUT % 55.2 %; NEUT ABS # 2.71 K/uL (1.4-6.5); PLATELET COUNT 159 K/uL (130-400); RED CELL DISTRIBUTION WIDTH CV 13.7 % (11.5-14.5); WHITE BLOOD COUNT 4.91 K/uL (4.8-10.8)
[2018-06-18 11:08] LABS: ALBUMIN 3.7 gm/dl (3.4-5.0); ALKALINE PHOSPHATASE 70 U/L (45-117); ALT/SGPT 15 U/L (12-78); AST/SGOT 12 U/L (15-37); BLOOD UREA NITROGEN 26 mg/dl (7-18); CALCIUM 8.6 mg/dl (8.5-10.1); CARBON DIOXIDE 27 mmol/L (21-32); CREATININE 1.94 mg/dl (0.60-1.40); GLUCOSE 98 mg/dl (70-99); POTASSIUM 4.3 mmol/L (3.5-5.1); SODIUM 140 mmol/L (136-145); TOTAL PROTEIN 7.3 gm/dl (6.4-8.2); TRANSFERRIN 227 mg/dl (200-360)
== END | disposition home or self-care (01) ==
LOC: C.LABBC 08:23
PROVIDERS: ATTEND Internal Medicine Nephrology
DX: R31.9 Hematuria, unspecified (principal); D64.9 Anemia, unspecified; Z90.5 Acquired absence of kidney; N18.4 Chronic kidney disease, stage 4 (severe)